=== PATIENT | male | born 1995 | race Caucasian/White ===

== ENCOUNTER 2017-06-22 10:04 | Emergency (ER) | payer OTHER ==
[2017-06-22] MEDS ORDERED: FAMOTIDINE 20 MG TAB PO ONE (11:50)
--- NOTE | 2017-06-22 11:50 | EDPHY ---
H & P Stated Complaint: one episode of "red" vomit this am otherwise no s/s Time Seen by Provider: 06/22/17 11:43 HPI/ROS: CHIEF COMPLAINT: Vomited blood HISTORY OF PRESENT ILLNESS: Patient is a 21-year-old healthy man who threw up this morning after drinking last night. He states that there was blood in his vomit. He otherwise is asymptomatic. He denies having any pain. He states that he does get frequent heartburn but does not take any medications. No diarrhea. No fever. He has not thrown up since 9:00 a.m.. It was 1 single episode. REVIEW OF SYSTEMS: Constitutional: denies: chills, fever, recent illness, recent injury EENTM: denies: blurred vision, double vision, nose congestion Respiratory: denies: cough, shortness of breath Cardiac: denies: chest pain, irregular heart rate, lightheadedness, palpitations Gastrointestinal/Abdominal: See HPI Genitourinary: denies: dysuria, frequency, hematuria, pain Musculoskeletal: denies: joint pain, muscle pain Skin: denies: lesions, rash, jaundice, bruising Neurological: denies: headache, numbness, paresthesia, tingling, dizziness, weakness Hematologic/Lymphatic: denies: blood clots, easy bleeding, easy bruising Immunologic/allergic: denies: HIV/AIDS, transplant EXAM: GENERAL: Well-appearing, well-nourished and in no acute distress. HEAD: Atraumatic, normocephalic. EYES: Pupils equal round and reactive to light, extraocular movements intact, sclera anicteric, conjunctiva are normal. ENT: TMs normal, nares patent, oropharynx clear without exudates. Moist mucous membranes. NECK: Normal range of motion, supple without lymphadenopathy or JVD. LUNGS: Breath sounds clear to auscultation bilaterally and equal. No wheezes rales or rhonchi. HEART: Regular rate and rhythm without murmurs, rubs or gallops. ABDOMEN: Soft, nontender, normoactive bowel sounds. No guarding, no rebound. No masses appreciated. BACK: No CVA tenderness, no spinal tenderness, step-offs or deformities EXTREMITIES: Normal range of motion, no pitting or edema. No clubbing or cyanosis. NEUROLOGICAL: Cranial nerves II through XII grossly intact. Normal speech, normal gait. 5/5 strength, normal movement in all extremities, normal sensation PSYCH: Normal mood, normal affect. SKIN: Warm, dry, normal turgor, no visible rashes or lesions. Source: Patient Exam Limitations: No limitations - Medical/Surgical History Hx Asthma: No Hx Chronic Respiratory Disease: No Hx Diabetes: No Hx Cardiac Disease: No Hx Renal Disease: No Hx Cirrhosis: No Hx Alcoholism: No Hx HIV/AIDS: No Hx Splenectomy or Spleen Trauma: No Other PMH: BIPOLAR. gynecomastal removal surgery - Family History Significant Family History: No pertinent family hx - Social History Smoking Status: Current some day smoker Alcohol Use: Heavy Drug Use: None Constitutional: Initial Vital Signs Temperature (C) 36.5 C 06/22/17 10:08 Heart Rate 90 06/22/17 10:08 Respiratory Rate 16 06/22/17 10:08 Blood Pressure 129/85 H 06/22/17 10:08 O2 Sat (%) 98 06/22/17 10:08 O2 Delivery Mode Room Air Allergies/Adverse Reactions: No Known Allergies Allergy (Unverified 06/13/15 10:13) Home Medications: Medication Instructions Recorded Lamictal 12/28/14 Abilify 05/21/15 Hydrocodone/APAP 5/325 [[place] 1 tab PO Q6 PRN #15 tab 05/22/15 5/325 (RX)] Famotidine [Pepcid 20 MG (OTC)] 20 mg PO BID #30 tab 06/22/17 Medical Decision Making ED Course/Re-evaluation: The patient is currently asymptomatic. He has not thrown up in several hours. We will give him p.o. Challenge. If he tolerates this I will start him on Pepcid and have him follow up with GI. The patient agrees with this plan. He declines further workup or testing at this time. Differential Diagnosis: Partial list of the Differential diagnosis considered include but were not limited to; peptic ulcer disease, gastritis, and although unlikely based on the history and physical exam, I also considered varices, esophageal rupture, ischemia. I discussed these differential diagnoses and the plan with the patient as well as the usual and expected course. The patient understands that the diagnosis is provisional and that in medicine we are not always correct and that further workup is often warranted. Usual and customary warnings were given. All of the patient's questions were answered. The patient was instructed to return to the emergency department should the symptoms at all worsen or return, otherwise to followup with the physician as we discussed. - Data Points Medications Given: Discontinued Medications Famotidine (Pepcid) 40 mg PO EDNOW ONE Stop: 06/22/17 11:51 Last Admin: 06/22/17 12:05 Dose: 40 mg Departure - Departure Disposition: Home, Routine, Self-Care Clinical Impression: Peptic ulcer disease Condition: Fair Instructions: Peptic Ulcer (ED) Referrals: NONE *PRIMARY CARE P,. [Primary Care Provider] - As per Instructions Ralf Camacho MD, FACG [Medical Doctor] - As per Instructions Prescriptions: Famotidine [Pepcid 20 MG (OTC)] 20 mg PO BID #30 tab
[2017-06-22 12:33] VITALS: BP 108/64
== END 2017-06-22 12:33 | disposition home or self-care (01) ==
DX: K27.9 Peptic ulcer, site unspecified, unspecified as acute or chronic, without hemorrhage or perforation (principal); F17.200 Nicotine dependence, unspecified, uncomplicated